=== PATIENT | male | born 1990 | race Caucasian/White ===

== ENCOUNTER 2017-08-06 12:35 | Emergency (ER) | payer OTHER ==
[~2017-08-06] VITALS: Ht 182.8 cm; Wt 74.8 kg
[~2017-08-06 12:35] MED LIST: MOTRIN800 MG PO
[2017-08-06] MEDS ORDERED: ZYRTEC10 MG PO (13:35)
== END 2017-08-06 13:52 | disposition home or self-care (01) ==
LOC: ED 12:35
DX: H61.22 Impacted cerumen, left ear (principal)

== ENCOUNTER 2023-01-14 08:33 | Emergency (ER) | payer OTHER ==
[~2023-01-14] VITALS: Ht 193 cm; Wt 79.4 kg
[~2023-01-14 08:33] MED LIST changes: +ZYRTEC10 MG PO
== END 2023-01-14 09:35 | disposition home or self-care (01) ==
LOC: ED 08:33
DX: H10.9 Unspecified conjunctivitis (principal)

== ENCOUNTER 2023-05-21 16:32 | Emergency (ER) | payer OTHER ==
[~2023-05-21] VITALS: Ht 190.5 cm; Wt 86.2 kg
== END 2023-05-21 20:49 | disposition home or self-care (01) ==
LOC: ED 16:32
DX: S22.32XA Fracture of one rib, left side, initial encounter for closed fracture (principal); W51.XXXA Accidental striking against or bumped into by another person, initial encounter; Y93.72 Activity, wrestling; Y92.488 Other paved roadways as the place of occurrence of the external cause; Y99.8 Other external cause status